=== PATIENT | female | born 1970 | race Caucasian/White ===

== ENCOUNTER 2021-05-30 22:20 | Emergency (ER) | payer OTHER ==
[~2021-05-30] VITALS: Ht 167.6 cm; Wt 69.5 kg
[~2021-05-30 22:20] MED LIST: ANTIVERT 25MG25 MG PO
[2021-05-30 22:28] VITALS: TEMP 98
[2021-05-30 23:08] LABS: BASO % 0.8 % (0.0-2.0); EOS # 0.1 K/mm3 (0.0-0.7); EOS % 2.1 % (0.0-4.0); GRAN # 2.6 K/mm3 (1.4-6.5); GRAN % 53.4 % (42.2-75.2); HEMOGLOBIN 11.9 g/dl (12.5-16.0); LYMPH # 1.7 K/mm3 (1.2-3.4); LYMPH % 35.2 % (20.0-51.0); MEAN CELL VOLUME 88 fl (80.0-100.0); MEAN CORPUSCULAR HEMOGLOBIN 29 pg (27-31); MEAN CORPUSCULAR HGB CONC 33 g/dl (33.0-37.0); MEAN PLATELET VOLUME 10.3 fl (7.4-10.4); MONO # 0.4 K/mm3 (0.1-0.6); MONO % 8.5 % (1.7-9.3); PLATELET COUNT 217 K/mm3 (130-400); RED BLOOD COUNT 4.18 M/mm3 (4.10-5.30)
[2021-05-30 23:09] LABS: HEMATOCRIT 36.6 % (37.0-47.0)
[2021-05-30 23:19] LABS: PROTHROMBIN TIME 11.5 SECONDS (9.7-12.8)
[2021-05-30 23:27] LABS: ALBUMIN 4.4 gm/dL (3.5-5.0); BILIRUBIN,TOTAL 0.3 mg/dL (0.2-1.2); C-REACTIVE PROTEIN 0.16 mg/dL (0.00-0.50); CALCIUM 9.3 mg/dL (8.4-10.2); CREATININE, serum 0.9 mg/dL (0.57-1.11); POTASSIUM 3.6 mmol/L (3.5-4.5); TOTAL PROTEIN 7.3 gm/dL (6.2-8.1)
[2021-05-31] MEDS ORDERED: PLAVIX 75MG TAB75 MG PO (00:27)
[2021-05-31 00:49] VITALS: BP 124/80; PULSE 86
== END 2021-05-31 00:45 | disposition home or self-care (01) ==
LOC: COL.ER 22:20
PROVIDERS: Nurse Practitioner
DX: R29.810 Facial weakness (principal)
CPT/HCPCS: Q9967

== ENCOUNTER → 2021-06-02 | Outpatient (CLI) | payer OTHER ==
[~2021-06-02] MED LIST changes: +PLAVIX 75MG TAB75 MG PO
== END ==
LOC: COL.RAD 08:52
DX: R29.810 Facial weakness (principal)
CPT/HCPCS: A9585